=== PATIENT | male | born 1990 | race American Indian/Alaskan Native ===

== ENCOUNTER 2017-05-19 23:43 | Emergency (ER) | payer OTHER ==
[2017-05-20 01:07] VITALS: BMI 19.5
[2017-05-20 01:12] VITALS: RESP 18; TEMP 98.2; O2SAT 98
--- NOTE | 2017-05-20 01:12 | ED PDOC ---
Arrival/HPI - General Historian: Patient <Jason Harding - Last Filed: 05/20/17 01:13> <Baltazar Brown - Last Filed: 05/20/17 05:57> - General Time Seen by Provider: 05/20/17 01:08 - History of Present Illness Narrative History of Present Illness (Text): 05/20/17 01:10 26 y/o male, no significant pmh, nkda, c/o need a place to sleep with no medical or psychological complaints. Pt. stated that he feels well and fine, no numbness or tingling, no fever or chills, no night sweat, no dizziness, no rash, no other medical or psychological complaints. (Jason Harding) Past Medical History - Provider Review Nursing Documentation Reviewed: Yes <Jason Harding - Last Filed: 05/20/17 01:13> Family/Social History - Physician Review Nursing Documentation Reviewed: Yes Family/Social History: Unknown Family HX <Jason Harding - Last Filed: 05/20/17 01:13> Allergies/Home Meds <Jason Harding - Last Filed: 05/20/17 01:13> <Baltazar Brown - Last Filed: 05/20/17 05:57> Allergies/Adverse Reactions: Allergies No Known Allergies Allergy (Verified 05/20/17 01:07) Review of Systems - Review of Systems Constitutional: absent: Fatigue, Fevers Eyes: absent: Vision Changes ENT: absent: Hearing Changes Respiratory: absent: SOB, Cough Cardiovascular: absent: Chest Pain Gastrointestinal: absent: Abdominal Pain, Nausea, Vomiting Musculoskeletal: absent: Arthralgias, Back Pain, Neck Pain Neurological: absent: Headache, Dizziness, Focal Weakness, Gait Changes Psychiatric: absent: Anxiety, Depression, Suicidal Ideation <Jason Harding - Last Filed: 05/20/17 01:13> Physical Exam - Systems Exam Head: Present: Atraumatic, Normocephalic Pupils: Present: PERRL Extroacular Muscles: Present: EOMI Conjunctiva: Present: Normal Mouth: Present: Moist Mucous Membranes Neck: Present: Normal Range of Motion Respiratory/Chest: Present: Clear to Auscultation, Good Air Exchange. No: Respiratory Distress, Accessory Muscle Use Cardiovascular: Present: Regular Rate and Rhythm, Normal S1, S2. No: Murmurs Abdomen: Present: Normal Bowel Sounds. No: Tenderness, Distention, Peritoneal Signs Back: Present: Normal Inspection Upper Extremity: Present: Normal Inspection. No: Cyanosis, Edema Lower Extremity: Present: Normal Inspection. No: Edema Neurological: Present: GCS=15, Speech Normal, Motor Func Grossly Intact, Gait Normal, Memory Normal Skin: Present: Warm, Dry, Normal Color. No: Rashes Psychiatric: Present: Alert, Oriented x 3, Normal Insight, Normal Concentration <Jason Harding - Last Filed: 05/20/17 01:13> Medical Decision Making <Jason Harding - Last Filed: 05/20/17 01:13> <Baltazar Brown - Last Filed: 05/20/17 05:57> ED Course and Treatment: 05/20/17 01:11 -Pt. is currently sleeping in the ER, no homicidal or suicidal ideation, no auditory or visual hallucination. -Discharge home with education on follow up with your own pmd within 2 days, return to the ER for any new or worsening signs or symptoms. (Jason Harding) - PA / [employer]IST / Resident Statement OSVALDO has reviewed & agrees with the documentation as recorded. <Jason Harding - Last Filed: 05/20/17 01:13> - PA / [employer] SPECIALIST / Resident Statement / has reviewed & agrees with the documentation as recorded. <Baltazar Brown - Last Filed: 05/20/17 05:57> Disposition/Present on Arrival - Present on Arrival Any Indicators Present on Arrival: No History of DVT/PE: No History of Uncontrolled Diabetes: No Urinary Catheter: No History of Decub. Ulcer: No - Disposition Have Diagnosis and Disposition been Completed?: Yes Disposition Time: 01:12 Patient Plan: Discharge <Jason Harding - Last Filed: 05/20/17 01:13> - Present on Arrival Any Indicators Present on Arrival: No - Disposition Have Diagnosis and Disposition been Completed?: Yes <Baltazar Brown - Last Filed: 05/20/17 05:57> - Disposition Diagnosis: General medical exam Disposition: HOME/ ROUTINE Condition: GOOD Additional Instructions: -Discharge home with education on follow up with your own pmd within 2 days, return to the ER for any new or worsening signs or symptoms. Referrals: [facility] at [facility] [place] [Outside] - Follow up with primary Forms: WORK NOTE
[2017-05-20 05:26] VITALS: BP 118/74; PULSE 72
== END 2017-05-20 05:45 | disposition home or self-care (01) ==
LOC: ED 23:43
DX: Z00.00 Encounter for general adult medical examination without abnormal findings (principal)

== ENCOUNTER 2017-05-20 10:40 | Emergency (ER) | payer SELFPAY ==
[2017-05-20 10:40] VITALS: BMI 19.5
[2017-05-20 11:00] VITALS: TEMP 98.4
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
[2017-05-20 11:30] LABS: BASO # 0.01 K/mm3 (0.0-2.0); BASO % 0.2 % (0.0-3.0); EOS # 0.1 (0.0-0.7); EOS % 1.2 % (1.5-5.0); GRAN # 2.83 (1.4-6.5); GRAN % 66.9 % (50.0-68.0); HEMOGLOBIN 14.2 g/dL (14.0-18.0); LYMPH % 22.5 % (22.0-35.0); MEAN CELL VOLUME 87.9 fl (80.0-105.0); MEAN CORPUSCULAR HEMOGLOBIN 31.7 pg (25.0-35.0); MEAN PLATELET VOLUME 10.1 fl (7.0-11.0); MONO # 0.4 (0.1-0.6); MONO % 9.2 % (1.0-6.0); PLATELET COUNT 173 10^3/uL (120.0-450.0); RBC 4.48 10^6/uL (3.5-6.1); RED CELL DISTRIBUTION WIDTH 11.7 % (11.5-14.5); WHITE BLOOD COUNT 4.2 10^3/ul (4.5-11.0)
[2017-05-20 11:40] LABS: ALB/GLOB RATIO 1.4 (1.1-1.8); ALBUMIN 4.5 g/dL (3.0-4.8); ALT/SGPT 27 U/L (7-56); AST/SGOT 24 U/L (15-59); BLOOD UREA NITROGEN 10 mg/dL (7-21); CALCIUM 9.7 mg/dL (8.4-10.5); GFR AFRICAN-AMERICAN > 60; GFR NON-AFRICAN AMERICAN > 60
[2017-05-20 12:44] VITALS: BP 118/78; PULSE 62; RESP 16; O2SAT 99
== END 2017-05-20 12:44 | disposition home or self-care (01) ==
LOC: ED 10:40
DX: R53.1 Weakness (principal)